=== PATIENT | male | born 1955 | race Caucasian/White ===

== ENCOUNTER 2024-04-04 06:13 | Day surgery (SDC) | payer OTHER, SELFPAY ==
[2024-04-04] VITALS (9 sets, daily range): BP systolic 103–124; BP diastolic 64–82; BMI 26.6
== END 2024-04-04 14:57 | disposition home or self-care (01) ==
LOC: GI 06:13
PROVIDERS: ATTENDING PHYSICIAN Internal Medicine Critical Care Medicine
DX: C77.1 Secondary and unspecified malignant neoplasm of intrathoracic lymph nodes (principal); R91.8 Other nonspecific abnormal finding of lung field; R93.89 Abnormal findings on diagnostic imaging of other specified body structures; R05.3 Chronic cough; Z85.038 Personal history of other malignant neoplasm of large intestine; Z87.891 Personal history of nicotine dependence
CPT/HCPCS: 31653; 31628; 31654; 88172; 88173; 88305; 71045; 88341; 88342